=== PATIENT | male | born 1960 | race Two or more races ===

== ENCOUNTER 2018-06-12 14:56 | Inpatient (IN) | payer MEDICAID, OTHER ==
[~2018-06-12] VITALS: Ht 172.7 cm; Wt 78.0 kg
[2018-06-12 17:49] LABS: HEMATOCRIT. 24.3 % (42.0-52.0); HEMOGLOBIN. 7.9 g/dL (14.0-18.0); MEAN CORPUSCULAR HEMOGLOBIN 26.3 pg (28.0-32.0); MEAN CORPUSCULAR VOLUME 81.3 fL (80.0-94.0); MEAN PLATELET VOLUME 7.3 fl (7.4-10.4); PLATELET 722 x1000/uL (130-400); RED BLOOD CELL COUNT 2.98 mill/uL (4.7-6.1); RED CELL DISTRIBUTION WIDTH 17.6 % (11.6-14.6)
[2018-06-12 17:55] LABS: CHLORIDE 106 mEq/L (98-107)
[2018-06-12 18:59] LABS: PLATELET ESTIMATE INCREASED
[2018-06-12] MEDS ORDERED: ACETAMINOPHEN 325MG TABLET PO PRN (19:15)
[2018-06-12] MEDS ORDERED: ONDANSETRON HCL 4MG/2ML INJ IV PRN (19:15)
[2018-06-12] MEDS ORDERED: CLONIDINE 0.1MG TABLET PO PRN (19:15)
[2018-06-12] MEDS ORDERED: HYDROCODONE/ACETAMINOPHEN 5/325MG TABLET PO PRN (19:15)
[2018-06-12 22:40] VITALS: BP 156/94
[2018-06-12] MEDS ORDERED: DEXT 5%/0.45% NACL 1000ML 1,000 ML IV SCH (23:00)
[2018-06-12 23:24] VITALS: BP 156/94
[2018-06-13 01:55] VITALS: BP 156/94
[2018-06-13 04:00] VITALS: BP 122/77
[2018-06-13 07:00] LABS: HEMATOCRIT. 22.9 % (42.0-52.0); HEMOGLOBIN. 7.6 g/dL (14.0-18.0); MEAN CORPUSCULAR VOLUME 81.2 fL (80.0-94.0); MEAN PLATELET VOLUME 7.1 fl (7.4-10.4); PLATELET 651 x1000/uL (130-400); RED BLOOD CELL COUNT 2.82 mill/uL (4.7-6.1); RED CELL DISTRIBUTION WIDTH 17.7 % (11.6-14.6)
[2018-06-13 07:14] LABS: CHLORIDE 108 mEq/L (98-107)
[2018-06-13] MEDS ORDERED: SODIUM CHLORIDE 0.9% 1,000 ML IV SCH (07:25)
[2018-06-13] MEDS ORDERED: ONDANSETRON HCL 4MG/2ML INJ IV PRN (07:30)
[2018-06-13] MEDS ORDERED: ATROPINE SULFATE 1MG/10ML SYR IV PRN (07:30)
[2018-06-13] MEDS ORDERED: MEPERIDINE HCL/PF 25MG/ML CPJ IV PRN (07:30)
[2018-06-13] MEDS ORDERED: FENTANYL CITRATE/PF 50MCG/ML 2ML VIAL IV PRN (07:30)
[2018-06-13] MEDS ORDERED: HYDROMORPHONE HCL/PF 2MG/ML CPJ IV PRN (07:30)
[2018-06-13] MEDS ORDERED: FENTANYL CITRATE/PF 50MCG/ML 2ML VIAL ONE (07:39)
[2018-06-13] MEDS ORDERED: MIDAZOLAM HCL 2 MG/2 ML VIAL ONE (07:40)
[2018-06-13] MEDS ORDERED: ROCURONIUM BROMIDE 10MG/ML VIAL 5ML IV ONE (07:40)
[2018-06-13] MEDS ORDERED: PROPOFOL 200MG/20ML VIAL IV ONE (07:40)
[2018-06-13] MEDS ORDERED: GENTAMICIN SULF 40MG/ML 2ML VIAL ONE (08:26)
[2018-06-13] MEDS ORDERED: METOCLOPRAMIDE HCL 10MG/2ML VIAL ONE (08:26)
[2018-06-13] MEDS ORDERED: ONDANSETRON HCL 4MG/2ML INJ ONE (08:27)
[2018-06-13] MEDS ORDERED: NEOSTIGMINE METHYLSULFATE 1MG/ML 10 ML VIAL ONE (08:42)
[2018-06-13] MEDS ORDERED: LORAZEPAM 1MG TABLET PO PRN (09:30)
[2018-06-13] MEDS ORDERED: MAGNESIUM HYDROXIDE 400MG/5ML 30ML UDC PO PRN (09:30)
[2018-06-13] MEDS: GENTAMICIN 80MG PREMIX 100 ML IV SCH ×2 (10:56→18:20)
[2018-06-13 12:00] VITALS: BP 140/98
[2018-06-13 13:38] LABS: HEMATOCRIT. 28.3 % (42.0-52.0); HEMOGLOBIN. 9.1 g/dL (14.0-18.0); MEAN CORPUSCULAR HEMOGLOBIN 26.7 pg (28.0-32.0); MEAN CORPUSCULAR VOLUME 83.1 fL (80.0-94.0); MEAN PLATELET VOLUME 7.9 fl (7.4-10.4); PLATELET 437 x1000/uL (130-400); RED BLOOD CELL COUNT 3.41 mill/uL (4.7-6.1); RED CELL DISTRIBUTION WIDTH 16.6 % (11.6-14.6)
[2018-06-13 13:43] LABS: PROTHROMBIN TIME 10.4 sec (9.1-11.1)
[2018-06-13 13:51] LABS: ATYPICAL LYMPHOCYTES 2
[2018-06-13 13:52] LABS: PLATELET ESTIMATE INCREASED
[2018-06-13 14:17] LABS: PLATELET ESTIMATE INCREASED
[2018-06-13 15:56] LABS: CLARITY URINE CLOUDY (CLEAR); COLOR URINE YELLOW (YELLOW); KETONES URINE NEGATIVE (NEGATIVE); LEUKOCYTE ESTERASE URINE 3+ (NEGATIVE); NITRITE URINE NEGATIVE (NEGATIVE); OCCULT BLOOD URINE 3+ (NEGATIVE); PH URINE 6.5 (4.5-8.0); PROTEIN URINE 4+ (NEGATIVE); SPECIFIC GRAVITY URINE 1.018 (1.005-1.030); UROBILINOGEN URINE 0.2 E.U./dL (0.2-1.0)
[2018-06-13 16:00] VITALS: BP 129/78
[2018-06-13] MEDS: DOCUSATE SODIUM 100MG CAPSULE PO SCH (16:50)
[2018-06-13] MEDS ORDERED: MORPHINE SULFATE 4 MG/ML CPJ (NOT FOR IM USE) IV PRN (17:00)
[2018-06-13 20:00] VITALS: BP 114/63
[2018-06-13] MEDS: HYDROCODONE/ACETAMINOPHEN 10/325MG TABLET PO PRN (22:41)
[2018-06-14] VITALS: BP 114/80
[2018-06-14 04:00] VITALS: BP 118/68
[2018-06-14 07:38] LABS: HEMATOCRIT. 25.9 % (42.0-52.0); HEMOGLOBIN. 8.3 g/dL (14.0-18.0); MEAN CORPUSCULAR HEMOGLOBIN 26.4 pg (28.0-32.0); MEAN CORPUSCULAR VOLUME 82.1 fL (80.0-94.0); MEAN PLATELET VOLUME 7.4 fl (7.4-10.4); PLATELET 539 x1000/uL (130-400); RED BLOOD CELL COUNT 3.15 mill/uL (4.7-6.1); RED CELL DISTRIBUTION WIDTH 16.6 % (11.6-14.6)
[2018-06-14 08:00] VITALS: BP 124/77
[2018-06-14] MEDS: DOCUSATE SODIUM 100MG CAPSULE PO SCH ×2 (09:00→16:59)
[2018-06-14 09:05] LABS: CHLORIDE 106 mEq/L (98-107)
[2018-06-14 10:46] LABS: PLATELET ESTIMATE INCREASED
[2018-06-14] MEDS: DOCUSATE SODIUM 250MG CAPSULE PO SCH (11:00)
[2018-06-14] MEDS: FERROUS SULFATE 325MG TABLET PO SCH ×2 (11:51→16:59)
[2018-06-14] MEDS: LEVOFLOXACIN 500MG TABLET PO SCH (11:51)
[2018-06-14 12:00] VITALS: BP 121/72
[2018-06-14] MEDS ORDERED: IOHEXOL-300 100 ML BOTTLE ONE (15:00)
[2018-06-14] MEDS: OXYBUTYNIN CHLORIDE 5MG TABLET PO SCH ×2 (15:25→21:41)
[2018-06-14 16:00] VITALS: BP 138/81
[2018-06-14 20:00] VITALS: BP 115/74
[2018-06-14] MEDS: HYDROCODONE/ACETAMINOPHEN 10/325MG TABLET PO PRN (22:14)
[2018-06-15] VITALS: BP 113/68
[2018-06-15 04:00] VITALS: BP 126/78
[2018-06-15] MEDS: OXYBUTYNIN CHLORIDE 5MG TABLET PO SCH ×3 (06:50→21:00)
[2018-06-15 07:25] LABS: HEMATOCRIT. 28.6 % (42.0-52.0); MEAN CORPUSCULAR HEMOGLOBIN 25.9 pg (28.0-32.0); MEAN CORPUSCULAR VOLUME 82.3 fL (80.0-94.0); MEAN PLATELET VOLUME 7.5 fl (7.4-10.4); PLATELET 578 x1000/uL (130-400); RED BLOOD CELL COUNT 3.48 mill/uL (4.7-6.1); RED CELL DISTRIBUTION WIDTH 17.4 % (11.6-14.6)
[2018-06-15 08:00] VITALS: BP 107/76
[2018-06-15] MEDS: DOCUSATE SODIUM 100MG CAPSULE PO SCH ×2 (08:14→16:48)
[2018-06-15] MEDS: DOCUSATE SODIUM 250MG CAPSULE PO SCH (08:14)
[2018-06-15] MEDS: FERROUS SULFATE 325MG TABLET PO SCH ×3 (08:21→16:51)
[2018-06-15] MEDS: LEVOFLOXACIN 500MG TABLET PO SCH (10:06)
[2018-06-15 12:00] VITALS: BP 108/72
[2018-06-15 14:08] LABS: PLATELET ESTIMATE INCREASED
[2018-06-15 16:00] VITALS: BP 138/94
[2018-06-15 20:00] VITALS: BP 124/75
[2018-06-15] MEDS: HYDROCODONE/ACETAMINOPHEN 10/325MG TABLET PO PRN (21:10)
[2018-06-16] VITALS (11 sets, daily range): BP systolic 110–146; BP diastolic 66–100
[2018-06-16] MEDS: OXYBUTYNIN CHLORIDE 5MG TABLET PO SCH ×3 (05:25→22:27)
[2018-06-16 07:08] LABS: HEMATOCRIT. 23.6 % (42.0-52.0); HEMOGLOBIN. 7.7 g/dL (14.0-18.0); MEAN CORPUSCULAR HEMOGLOBIN 26.5 pg (28.0-32.0); MEAN CORPUSCULAR VOLUME 81.6 fL (80.0-94.0); MEAN PLATELET VOLUME 7.4 fl (7.4-10.4); PLATELET 512 x1000/uL (130-400); RED BLOOD CELL COUNT 2.89 mill/uL (4.7-6.1); RED CELL DISTRIBUTION WIDTH 17.6 % (11.6-14.6)
[2018-06-16] MEDS: DOCUSATE SODIUM 100MG CAPSULE PO SCH ×2 (08:22→17:00)
[2018-06-16] MEDS: FERROUS SULFATE 325MG TABLET PO SCH ×3 (08:22→17:56)
[2018-06-16] MEDS: DOCUSATE SODIUM 250MG CAPSULE PO SCH (09:00)
[2018-06-16 09:09] LABS: CHLORIDE 104 mEq/L (98-107)
[2018-06-16] MEDS: LEVOFLOXACIN 500MG TABLET PO SCH (11:50)
[2018-06-16 12:07] LABS: PLATELET ESTIMATE INCREASED
[2018-06-16] MEDS: HYDROCODONE/ACETAMINOPHEN 10/325MG TABLET PO PRN (22:27)
[2018-06-16 23:05] LABS: HEMATOCRIT 26.5 % (42.0-52.0); HEMOGLOBIN 8.7 g/dL (14.0-18.0)
[2018-06-17] VITALS: BP 134/79
[2018-06-17 04:00] VITALS: BP 139/82
[2018-06-17] MEDS: OXYBUTYNIN CHLORIDE 5MG TABLET PO SCH (05:51)
[2018-06-17 07:13] LABS: HEMATOCRIT. 24.9 % (42.0-52.0); HEMOGLOBIN. 8.3 g/dL (14.0-18.0); MEAN CORPUSCULAR HEMOGLOBIN 27.1 pg (28.0-32.0); MEAN CORPUSCULAR VOLUME 81.9 fL (80.0-94.0); MEAN PLATELET VOLUME 7.6 fl (7.4-10.4); PLATELET 484 x1000/uL (130-400); RED BLOOD CELL COUNT 3.04 mill/uL (4.7-6.1); RED CELL DISTRIBUTION WIDTH 17.8 % (11.6-14.6)
[2018-06-17] MEDS ORDERED: DOCU-138 PO (08:14)
[2018-06-17] MEDS ORDERED: FERR325T23 PO (08:14)
[2018-06-17] MEDS: FERROUS SULFATE 325MG TABLET PO SCH (08:47)
[2018-06-17] MEDS: DOCUSATE SODIUM 100MG CAPSULE PO SCH (08:48)
[2018-06-17] MEDS: DOCUSATE SODIUM 250MG CAPSULE PO SCH (09:00)
[2018-06-17 09:05] VITALS: BP 135/78
[2018-06-17 09:08] LABS: CHLORIDE 104 mEq/L (98-107)
[2018-06-17 14:17] LABS: PLATELET ESTIMATE INCREASED
[2018-06-24] MEDS ORDERED: DILT120C46 PO (21:48)
[2018-06-26] MEDS ORDERED: LEVO500T2 PO (13:27)
[2018-06-26] MEDS ORDERED: OXYB5TAB11 PO (13:27)
== END 2018-06-17 09:30 | disposition home or self-care (01) | DRG 446 ==
LOC: ER 14:56 → 6EST 17:38 → EDBEDREQ 17:41 → EDBEDREQTM 17:41 → EDBEDREQSVC 19:33 → ENRESERV 20:19 → EDBEDREQ 22:35
PROVIDERS: ADMIT Internal Medicine; ATTEND Internal Medicine
PROC: 30233N1 Transfusion of Nonautologous Red Blood Cells into Peripheral Vein, Percutaneous Approach (ICD-10-PCS; 2018-06-13)
PROC: 0TBB8ZZ Excision of Bladder, Via Natural or Artificial Opening Endoscopic (ICD-10-PCS; principal; 2018-06-13 07:30)
DX: C67.9 Malignant neoplasm of bladder, unspecified (principal); E44.0 Moderate protein-calorie malnutrition; D50.0 Iron deficiency anemia secondary to blood loss (chronic); I10 Essential (primary) hypertension; F17.210 Nicotine dependence, cigarettes, uncomplicated; N32.89 Other specified disorders of bladder; N39.0 Urinary tract infection, site not specified; Z68.26 Body mass index [BMI] 26.0-26.9, adult; Z71.6 Tobacco abuse counseling
CPT/HCPCS: 36415; 71045; 74178; 80048; 80051; 85014; 85018; 85384; 86850; 86900; 86920; 87077; 87186; 88305; 93005; 93970; 99285; 99406; J1580; J2250; J2405; J2704; J2710; J2765; J3010; J3490; J7040; P9016; Q9967

== ENCOUNTER 2018-08-13 06:40 | Inpatient (IN) | payer MEDICAID ==
[~2018-08-13] VITALS: Ht 172.7 cm; Wt 81.6 kg
[~2018-08-13 06:40] MED LIST: DILT120C46 PO; DOCU-138 PO; FERR325T23 PO; LACTATED RINGERS 1,000 ML IV SCH; LEVO500T2 PO; OXYB5TAB11 PO
[2018-08-13] MEDS ORDERED: GLYCOPYRROLATE 0.2 MG/ML 2ML VIAL ONE (09:07)
[2018-08-13] MEDS ORDERED: LIDOCAINE HCL/PF 1% 10 MG/ML 5ML VIAL ONE (09:07)
[2018-08-13] MEDS ORDERED: FENTANYL CITRATE/PF 50MCG/ML 2ML VIAL ONE ×2 (09:07→09:58)
[2018-08-13] MEDS ORDERED: MIDAZOLAM HCL 2 MG/2 ML VIAL ONE (09:07)
[2018-08-13] MEDS ORDERED: PROPOFOL 200MG/20ML VIAL IV ONE (09:07)
[2018-08-13] MEDS ORDERED: ONDANSETRON HCL 4MG/2ML INJ ONE (09:08)
[2018-08-13] MEDS ORDERED: METOCLOPRAMIDE HCL 10MG/2ML VIAL ONE (09:08)
[2018-08-13] MEDS ORDERED: SUCCINYLCHOLINE CHLORIDE 200MG/10ML IV ONE (09:08)
[2018-08-13] MEDS ORDERED: LORAZEPAM 1MG TABLET PO PRN (10:30)
[2018-08-13] MEDS ORDERED: HYDROCODONE/ACETAMINOPHEN 10/325MG TABLET PO PRN (10:45)
[2018-08-13] MEDS ORDERED: MAGNESIUM HYDROXIDE 400MG/5ML 30ML UDC PO PRN (10:45)
[2018-08-13] MEDS ORDERED: LEVOFLOXACIN 500MG TABLET PO NR (12:00)
[2018-08-13 14:50] VITALS: BP 134/80
[2018-08-13 16:01] VITALS: BP 159/94
[2018-08-13 20:00] VITALS: BP 154/99
[2018-08-13] MEDS ORDERED: TRAZODONE HCL 50MG TABLET PO SCH (21:00)
[2018-08-14] VITALS: BP 127/72
[2018-08-14 04:00] VITALS: BP 143/87
[2018-08-14 06:12] LABS: CHLORIDE 107 mEq/L (98-107)
[2018-08-14 06:30] LABS: HEMATOCRIT. 36.2 % (42.0-52.0); HEMOGLOBIN. 11.2 g/dL (14.0-18.0); MEAN CORPUSCULAR HEMOGLOBIN 28.5 pg (28.0-32.0); MEAN CORPUSCULAR VOLUME 91.9 fL (80.0-94.0); MEAN PLATELET VOLUME 8.2 fl (7.4-10.4); PLATELET 346 x1000/uL (130-400); RED BLOOD CELL COUNT 3.94 mill/uL (4.7-6.1); RED CELL DISTRIBUTION WIDTH 20.4 % (11.6-14.6)
[2018-08-14 08:00] VITALS: BP 145/89
[2018-08-14 09:49] LABS: PLATELET ESTIMATE NORMAL
[2018-08-14] MEDS ORDERED: LEVOFLOXACIN 500MG TABLET PO SCH (11:00)
[2018-08-14 11:46] VITALS: BP 145/89
[2018-08-14 12:00] VITALS: BP 151/84
== END 2018-08-14 12:12 | disposition home or self-care (01) | DRG 446 ==
LOC: OR 06:40 → 6EST 06:41
PROVIDERS: ADMIT Urology; ATTEND Urology
PROC: 0TCB8ZZ Extirpation of Matter from Bladder, Via Natural or Artificial Opening Endoscopic (ICD-10-PCS; 2018-08-13)
PROC: 0TBB8ZZ Excision of Bladder, Via Natural or Artificial Opening Endoscopic (ICD-10-PCS; principal; 2018-08-13 11:00)
DX: C67.9 Malignant neoplasm of bladder, unspecified (principal); F17.210 Nicotine dependence, cigarettes, uncomplicated; R31.0 Gross hematuria
CPT/HCPCS: 36415; 80048; 88305; J0330; J2250; J2405; J2704; J2765; J3010; J3490; J7040

== ENCOUNTER 2018-09-17 06:35 | Inpatient (IN) | payer MEDICAID ==
[~2018-09-17] VITALS: Ht 172.7 cm; Wt 83.5 kg
[~2018-09-17 06:35] MED LIST changes: +DILACOR PO; -DILT120C46 PO; -DOCU-138 PO; -LEVO500T2 PO; -OXYB5TAB11 PO
[2018-09-17] MEDS ORDERED: MORPHINE SULFATE 4 MG/ML CPJ (NOT FOR IM USE) IV PRN (09:15)
[2018-09-17] MEDS ORDERED: SODIUM CHLORIDE 0.9% 1,000 ML IV ONE (09:15)
[2018-09-17] MEDS ORDERED: HYDROMORPHONE HCL/PF 2MG/ML CPJ IV PRN (09:15)
[2018-09-17] MEDS ORDERED: ONDANSETRON HCL 4MG/2ML INJ IV PRN (09:15)
[2018-09-17] MEDS ORDERED: MEPERIDINE HCL/PF 25MG/ML CPJ IV PRN (09:15)
[2018-09-17] MEDS ORDERED: HYDRALAZINE 20MG/ML VIAL IV SCH (10:15)
[2018-09-17 11:35] VITALS: BP 154/95
[2018-09-17 12:00] VITALS: BP 154/95
[2018-09-17] MEDS ORDERED: DILTIAZEM HCL 120MG CAPSULE CD 24HR PO SCH (12:00)
[2018-09-17] MEDS ORDERED: LORAZEPAM 1MG TABLET PO PRN (12:00)
[2018-09-17] MEDS ORDERED: MAGNESIUM HYDROXIDE 400MG/5ML 30ML UDC PO PRN (12:00)
[2018-09-17] MEDS ORDERED: LEVOFLOXACIN 500MG TABLET PO NR (12:00)
[2018-09-17] MEDS ORDERED: SUCCINYLCHOLINE CHLORIDE 200MG/10ML IV ONE (13:46)
[2018-09-17] MEDS ORDERED: EPHEDRINE SULFATE 50MG/ML VIAL ONE ×2 (13:46)
[2018-09-17] MEDS ORDERED: PROPOFOL 200MG/20ML VIAL IV ONE (13:46)
[2018-09-17] MEDS ORDERED: FENTANYL CITRATE/PF 50MCG/ML 2ML VIAL ONE ×2 (13:46)
[2018-09-17] MEDS ORDERED: LIDOCAINE HCL/PF 1% 10 MG/ML 5ML VIAL ONE (13:46)
[2018-09-17] MEDS ORDERED: METOCLOPRAMIDE HCL 10MG/2ML VIAL ONE (13:46)
[2018-09-17] MEDS ORDERED: HYDRALAZINE 20MG/ML VIAL ONE (13:46)
[2018-09-17] MEDS ORDERED: ONDANSETRON HCL 4MG/2ML INJ ONE (13:46)
[2018-09-17] MEDS ORDERED: MIDAZOLAM HCL 2 MG/2 ML VIAL ONE (13:46)
[2018-09-17] MEDS ORDERED: CLONIDINE 0.1MG TABLET PO PRN (15:45)
[2018-09-17 16:56] VITALS: BP 177/111
[2018-09-17 20:00] VITALS: BP 139/89
[2018-09-17] MEDS ORDERED: ACETAMINOPHEN WITH CODEINE 300/30MG TABLET PO PRN (23:30)
[2018-09-18] VITALS: BP 137/95
[2018-09-18 04:00] VITALS: BP 134/90
[2018-09-18 06:19] LABS: HEMATOCRIT. 39.9 % (42.0-52.0); HEMOGLOBIN. 12.8 g/dL (14.0-18.0); MEAN CORPUSCULAR HEMOGLOBIN 29.1 pg (28.0-32.0); PLATELET 329 x1000/uL (130-400); RED BLOOD CELL COUNT 4.39 mill/uL (4.7-6.1); RED CELL DISTRIBUTION WIDTH 18.7 % (11.6-14.6)
[2018-09-18 06:34] LABS: CHLORIDE 106 mEq/L (98-107)
[2018-09-18 08:00] VITALS: BP 146/104
[2018-09-18 08:16] VITALS: BP 134/90
[2018-09-18] MEDS ORDERED: LEVOFLOXACIN 500MG TABLET PO SCH (11:00)
[2018-09-18 17:02] LABS: PLATELET ESTIMATE NORMAL
== END 2018-09-18 08:50 | disposition home or self-care (01) | DRG 446 ==
LOC: OR 06:35 → 6EST 06:36
PROVIDERS: ADMIT Urology; ATTEND Urology
PROC: 0TBB8ZZ Excision of Bladder, Via Natural or Artificial Opening Endoscopic (ICD-10-PCS; principal; 2018-09-17)
DX: C67.1 Malignant neoplasm of dome of bladder (principal); C67.4 Malignant neoplasm of posterior wall of bladder; F17.210 Nicotine dependence, cigarettes, uncomplicated; N35.919 Unspecified urethral stricture, male, unspecified site; D64.9 Anemia, unspecified; Z85.51 Personal history of malignant neoplasm of bladder; Z91.013 Allergy to seafood; R31.0 Gross hematuria
CPT/HCPCS: 36415; 80048; 82962; 88305; 93005; J0330; J0360; J2250; J2405; J2704; J2765; J3010; J3490